=== PATIENT | female | born 1990 | race African-American/Black ===

== ENCOUNTER 2017-07-27 13:26 | Observation (INO) | payer OTHER ==
[~2017-07-27] VITALS: Ht 152.4 cm; Wt 93.3 kg
[2017-07-27 15:24] LABS: BASOPHILS # (AUTO) 0.14 x10^3/uL (0-0.1); BASOPHILS % (AUTO) 1 % (0-1); EOSINOPHILS # (AUTO) 0.33 x10^3/uL (0-0.4); EOSINOPHILS % (AUTO) 3 % (1-7); LYMPHOCYTES # (AUTO) 2.34 x10^3/uL (1-3.4); LYMPHOCYTES % (AUTO) 19 % (22-44); MD SCAN; MEAN CORPUSCULAR HEMOGLOBIN 30.2 pg (27.0-34.8); MEAN CORPUSCULAR HGB CONC 33.4 g/dL (32.4-35.8); MEAN CORPUSCULAR VOLUME 90.5 fL (80-100); MEAN PLATELET VOLUME 8.4 fL (7.4-10.4); MONOCYTES # (AUTO) 1.38 x10^3/uL (0.2-0.8); MONOCYTES % (AUTO) 11 % (2-9); NEUTROPHILS # (AUTO) 8.27 x10^3/uL (1.8-6.8); NEUTROPHILS % (AUTO) 66 % (42-75); PLATELET COUNT 323 x10^3/uL (130-400); RED BLOOD COUNT 4.72 x10^6/uL (3.82-5.3); RED CELL DISTRIBUTION WIDTH 13.9 % (9.6-15.2)
[2017-07-27 15:25] LABS: ALBUMIN 3.8 g/dL (3.4-5.0); ANION GAP 8 mmol/L (5-15); CALCIUM 9.3 mg/dL (8.5-10.1); CHLORIDE 109 mmol/L (98-107)
[2017-07-27 15:27] LABS: SALICYLATE LEVEL < 1.7 mg/dL (2.8-20.0)
[2017-07-27 15:33] LABS: ACETAMINOPHEN < 2 mcg/mL (10-30)
[2017-07-27 15:43] LABS: AMPHETAMINE SCREEN, URINE Negative (Negative); BARBITURATE SCREEN, URINE Negative (Negative); BENZODIAZEPINE SCREEN, URINE Negative (Negative); CANNABINOID SCREEN, URINE Positive (Negative); COCAINE SCREEN, URINE Negative (Negative); METHADONE SCREEN, URINE Negative (Negative); OPIATE SCREEN, URINE Negative (Negative)
[2017-07-27] MEDS ORDERED: ZIPRASIDONE 20 MG INJ IM ONE ×2 (17:18→17:30)
[2017-07-27] MEDS ORDERED: ACETAMINOPHEN 325 MG TABLET PO PRN (22:00)
[2017-07-27] MEDS ORDERED: HYDROcodone/APAP 5/325 TABLET PO PRN (22:00)
[2017-07-27] MEDS ORDERED: ONDANSETRON ODT 4 MG PO PRN (22:00)
[2017-07-27] MEDS ORDERED: ZIPRASIDONE 20MG CAPSULE PO PRN (22:00)
[2017-07-27] MEDS ORDERED: DOCUSATE 100 MG CAPSULE PO PRN (22:00)
[2017-07-27] MEDS ORDERED: LORazepam 2 MG/ML, 1ML IM PRN ×2 (22:00)
[2017-07-27] MEDS ORDERED: SODIUM CHLORIDE 0.9% 1,000 ML IV SCH (22:00)
[2017-07-27] MEDS ORDERED: LORazepam 1MG TABLET PO PRN (22:00)
[2017-07-27] MEDS ORDERED: BISACODYL 10 MG SUPP PR PRN (22:00)
[2017-07-28] MEDS ORDERED: LORazepam 2 MG/ML, 1ML ONE (01:11)
[2017-07-28] MEDS: LORazepam 2 MG/ML, 1ML IVPush PRN ×2 (01:28→02:20)
[2017-07-28 02:16] LABS: MICROSCOPIC INDICATED
[2017-07-28 02:31] LABS: CULTURE INDICATED? NO
[2017-07-28] MEDS ORDERED: LORazepam 1MG TABLET ONE (16:27)
[2017-07-28] MEDS ORDERED: ZIPRASIDONE 20MG CAPSULE ONE ×2 (17:20→17:29)
[2017-07-29] MEDS ORDERED: LORazepam 1MG TABLET ONE ×3 (02:13→22:27)
[2017-07-29 13:16] LABS: BASOPHILS # (AUTO) 0.08 x10^3/uL (0-0.1); BASOPHILS % (AUTO) 1 % (0-1); EOSINOPHILS # (AUTO) 0.14 x10^3/uL (0-0.4); EOSINOPHILS % (AUTO) 1 % (1-7); LYMPHOCYTES # (AUTO) 1.82 x10^3/uL (1-3.4); LYMPHOCYTES % (AUTO) 18 % (22-44); MD NO; MEAN CORPUSCULAR HEMOGLOBIN 30.1 pg (27.0-34.8); MEAN CORPUSCULAR HGB CONC 33.1 g/dL (32.4-35.8); MEAN CORPUSCULAR VOLUME 90.9 fL (80-100); MEAN PLATELET VOLUME 8.3 fL (7.4-10.4); MONOCYTES # (AUTO) 0.89 x10^3/uL (0.2-0.8); MONOCYTES % (AUTO) 9 % (2-9); NEUTROPHILS # (AUTO) 7.26 x10^3/uL (1.8-6.8); NEUTROPHILS % (AUTO) 71 % (42-75); PLATELET COUNT 332 x10^3/uL (130-400); RED BLOOD COUNT 4.63 x10^6/uL (3.82-5.3); RED CELL DISTRIBUTION WIDTH 13.3 % (9.6-15.2)
[2017-07-30] MEDS ORDERED: ZIPRASIDONE 20MG CAPSULE ONE (00:22)
[2017-07-30] MEDS ORDERED: HYDROcodone/APAP 5/325 TABLET ONE (05:30)
[2017-07-30 14:46] VITALS: BP 129/87
[2017-07-30] MEDS: LURASIDONE 20 MG TABLET PO SCH (15:30)
[2017-07-30 19:24] VITALS: BP 124/66
[2017-07-30] MEDS ORDERED: TRAZODONE 50MG TABLET PO SCH (21:00)
[2017-07-31 07:17] VITALS: BP 113/78
[2017-07-31] MEDS: LURASIDONE 20 MG TABLET PO SCH (07:43)
== END 2017-07-31 09:32 ==
LOC: ED 15:54 → EDIP 19:35 → 2N 07-30 12:49
PROVIDERS: ADMIT Surgery; ATTEND Internal Medicine
DX: F30.9 Manic episode, unspecified (principal); R65.10 Systemic inflammatory response syndrome (SIRS) of non-infectious origin without acute organ dysfunction; F22 Delusional disorders; F31.9 Bipolar disorder, unspecified; F20.9 Schizophrenia, unspecified; F12.90 Cannabis use, unspecified, uncomplicated
CPT/HCPCS: 36415; 80048; 80307; 80329; 81001; 82040; 82962; 84703; 85025; 96361; 96372; 96374; 96376; 99285; G0378; J2060; J3486; J7030; G0479; G0480

== ENCOUNTER 2018-11-05 13:56 | Emergency (ER) | payer OTHER ==
[~2018-11-05] VITALS: Ht 157.5 cm; Wt 69.3 kg
[2018-11-05 15:23] LABS: ALANINE AMINOTRANSFERASE 18 U/L (12-78); ALBUMIN 3.6 g/dL (3.4-5.0); CALCIUM 9.2 mg/dL (8.5-10.1)
[2018-11-05 15:23] LABS: BASOPHILS # (AUTO) 0.05 x10^3/uL (0-0.1); BASOPHILS % (AUTO) 1 % (0-1); EOSINOPHILS # (AUTO) 0.21 x10^3/uL (0-0.4); EOSINOPHILS % (AUTO) 3 % (1-7); LYMPHOCYTES % (AUTO) 27 % (22-44); MD NO; MEAN CORPUSCULAR HEMOGLOBIN 31.3 pg (27.0-34.8); MEAN CORPUSCULAR HGB CONC 33.3 g/dL (32.4-35.8); MEAN CORPUSCULAR VOLUME 93.9 fL (80-100); MEAN PLATELET VOLUME 8.5 fL (7.4-10.4); MONOCYTES # (AUTO) 0.47 x10^3/uL (0.2-0.8); MONOCYTES % (AUTO) 6 % (2-9); NEUTROPHILS # (AUTO) 5.03 x10^3/uL (1.8-6.8); NEUTROPHILS % (AUTO) 64 % (42-75); PLATELET COUNT 289 x10^3/uL (130-400); RED BLOOD COUNT 4.65 x10^6/uL (3.82-5.3); RED CELL DISTRIBUTION WIDTH 13.1 % (9.6-15.2)
[2018-11-05 15:28] LABS: ALKALINE PHOSPHATASE 50 U/L (45-117); BILIRUBIN,TOTAL 0.5 mg/dL (0.2-1.0); CREATININE 0.81 mg/dL (0.55-1.02)
[2018-11-05 15:29] LABS: MICROSCOPIC AUTO
--- NOTE | 2018-11-05 15:31 | NUR ---
RECEIVED BEDSIDE REPORT FROM GABRIELLE JACQUES. ASSUMING PT CARE AT THIS TIME. PER REPORT PT HAS RIGHT FLANK PAIN. PT RESTING ON GURNEY LISTENING TO MUSIC ON PHONE. NO ACUTE DISTRESS NOTED.
[2018-11-05 15:39] LABS: CULTURE INDICATED? YES
[2018-11-05 15:43] LABS: ANION GAP 6 mmol/L (5-15); CHLORIDE 107 mmol/L (98-107)
--- NOTE | 2018-11-05 16:14 | NUR ---
PT RESTING ON GURNEY LISTENING TO MUSIC ON CELL PHONE. NO ACUTE DISTRESS NOTED. NO NEEDS REQUESTED AT THIS TIME.
--- NOTE | 2018-11-05 16:14 | NUR ---
LATE ENTRY FOR 1550: PT AMBUALTORY WITH STEADY GAIT TO BATHROOM.
--- NOTE | 2018-11-05 17:05 | NUR ---
PT BACK FROM IMAGING. NO ACUTE DISTRESS NOTED. WATCHING HER CELL PHONE. NO NEEDS REQUESTED AT THIS TIME
[2018-11-05] MEDS ORDERED: ONDANSETRON ODT 4 MG ONE (17:57)
--- NOTE | 2018-11-05 17:59 | NUR ---
PT RESTING ON GURNEY. NO ACUTE DISTRESS NOTED. AWAITING US. NO NEEDS REQUESTED AT THIS TIME.
[2018-11-05] MEDS ORDERED: ONDANSETRON ODT 4 MG PO ONE (18:00)
--- NOTE | 2018-11-05 18:20 | NUR ---
PT BEING TAKEN TO IMAGING.
--- NOTE | 2018-11-05 18:59 | NUR ---
PT BACK FROM US
--- NOTE | 2018-11-05 19:05 | NUR ---
BEDSIDE REPORT TO GABRIELLE KOWALSKI.
[2018-11-05 19:38] VITALS: BP 109/56
== END 2018-11-05 19:40 | disposition home or self-care (01) ==
LOC: ED 18:20
DX: N83.201 Unspecified ovarian cyst, right side (principal); F31.9 Bipolar disorder, unspecified
CPT/HCPCS: 36415; 74176; 76830; 80053; 81001; 84703; 85025; 87086; 99284; Q0162